=== PATIENT | male | born 1990 | race Caucasian/White ===

== ENCOUNTER 2025-05-24 12:16 | Emergency (ER) | payer BC, SELFPAY ==
[2025-05-24 12:26] VITALS: BP 111/76
[2025-05-24 12:49] VITALS: BP 124/79
--- NOTE | 2025-05-24 12:56 | ED.GENMED ---
History of Present Illness
General
Chief Complaint: Musculo-Skeletal Complaint
Source: patient
Time Seen by Provider: 05/24/25 12:33
History of Present Illness
History of Present Illness:
34-year-old male with past medical history of insulin-dependent diabetes presenting to the ER for evaluation of right knee pain and deformity while he was playing softball states he was running, tried to stop but his knee kept going forward now with
significant pain and inability to ambulate. Notes a history of previous subluxations to the patella but states this does feel. No other injuries were sustained.
Past History
Past History
ED Past Medical History: IDDM and Other (Previous Lyme's disease)
ED Past Surgical History: None
Social History
Tobacco: Non-smoker
Alcohol: Occasional
Drug: Marijuana (Daily)
Personal: Single
Living: with family
Employment: Employed
Family History
Family History: Other (Noncontributory); Negative Early CAD
Review of Systems
Review of Systems
All Other Systems: ROS reviewed and negative except as documented in HPI and ROS
Phy Exam
Physical Exam
Physical Exam:
GENERAL: Alert , in no apparent distress
EYE: conjunctiva clear
Head: Normocephalic atraumatic
NECK: Supple,
ENT: mmm.
LUNGS: no acute respiratory distress
NEUROLOGICAL: Alert and oriented
SKIN: Warm and dry, skin intact.
MUSCULOSKELETAL: Right knee: Significant soft tissue swelling with diminished range of motion secondary to pain. Tenderness directly over the proximal tibia. Easily palpable pedal and tibial pulse. Cap refill less than 2 seconds. Sensation
grossly intact to light touch. Remainder of extremity is within normal limits.
PSYCH: Normal and appropriate interaction.
Scores
Heart Failure Risk
Heart Failure Risk Score: Not Applicable
Heart Score for Chest Pain Patients
STEMI patient?: Not applicable
Withdrawal Assessment of Alcohol
Withdrawal Assessment Completed?: Not applicable
Course
Orders/Labs/Results
Orders:
Orders
05/24/25 12:29
CR Knee- Right 4 Or More View* Urgent
Comment:
Reason For Exam: injury
05/24/25 12:52
Crutches-Treatment ONCE
Knee Immobilizer Right-Treatme ONCE
Ibuprofen [Motrin] 600 mg PO NOW STA
Vital Signs
Initial and Last Documented VS:
Initial Vital Signs
Temp Pulse Resp BP Pulse Ox
98.2 F 88 20 111/76 99
05/24/25 12:26 05/24/25 12:26 05/24/25 12:26 05/24/25 12:26 05/24/25 12:26
Last Documented Vital Signs
Temp Pulse Resp BP Pulse Ox
98.2 F 88 20 124/79 100
05/24/25 12:26 05/24/25 12:26 05/24/25 12:26 05/24/25 12:49 05/24/25 12:57
MDM/Problems Addressed
Differential Diagnosis Includes:
- Fracture
- Dislocation
- Ligamentous injury
- Meniscal injury
- Tendon rupture
MDM/Problems Addressed:
34-year-old male presenting to the ER for evaluation of right knee pain following an injury while playing softball. Patient brought to x-ray on arrival which does show a tibial plateau fracture. Will place in a knee immobilizer, patient to be
nonweightbearing and will need outpatient follow-up as will potentially need surgery for repair. Motrin for pain control
*Radiology
Radiology exam reviewed: preliminary read by ED provider (Tibial plateau fracture)
*Pulse Oximetry
SaO2: 100
Oxygen Mode of Delivery: Room air
Patient hypoxic: no
*Critical Care Note
Total Time (30-74mins, 75-104mins- exclusive of procedures): Not Applicable
Patient Management
Discussion with other providers: Cannoneer
Escalation/DeEscalation of care consider admission/obs:
I notified the on-call orthopedist, Dr. Alvarenga, who agrees with treatment plan and patient call the office tomorrow for a follow-up visit
ED Attending Note
-
Portions of this chart may have been created with voice recognition software.� Occasional wrong word or��sound alike� substitutions may have occurred due to the inherent limitations of voice recognition software.
Discharge Plan
Departure
Patient Disposition: Home (Routine Discharge)
Date of Disposition: 05/24/25
Time of Disposition: 12:56
Patient with high blood pressure during this ER visit?: No
Discharge Problem:
Closed fracture of right tibial plateau
Instructions: Lower leg fracture
Prescriptions:
No Action
Insulin Pump [Patient's Own Insulin Pump:] 1 UNITS Pump.Resvr
0 units SC .BASAL+MEAL BOLUSES
Patient Comments:
08/10/15: Insulin type = Humalog (Insulin Lispro)
Basal rate = unknown by patient - patient reports 'it was set at the office'
Bolus dose = per patient based on meal
Referrals:
Jitendra Cortes MD [Active, Orthopedics]
Referral Note: Please call for appointment tomorrow morning
Interventions
Interventions:
*Risk Screen - Suicide Last Done: 05/24/25 12:50
*General Assessment Last Done: 05/24/25 12:26
*Neglect/Abuse Screening Last Done: 05/24/25 12:50
*ED- Fall Risk Assessment Last Done: 05/24/25 12:50
*ED COVID-19 Vaccine History Last Done: 05/24/25 12:50
*Nursing Disposition Last Done: 05/24/25 13:08
ED-Musculoskeletal Assessment Last Done: 05/24/25 12:50
Discharge Date and Time
Discharge Date/Time: 05/24/25 13:08
Print Language: NORTHER[place] IRISH
[2025-05-24] MEDS: MOTRIN 600 MG PO (12:59)
== END 2025-05-24 13:08 | disposition home or self-care (01) ==
LOC: EMR 12:16
PROVIDERS: EMERGENCY PHYSICIAN Emergency Medicine; FAMILY PHYSICIAN Internal Medicine
DX: S82.141A Displaced bicondylar fracture of right tibia, initial encounter for closed fracture (principal); X50.1XXA Overexertion from prolonged static or awkward postures, initial encounter; Y93.64 Activity, baseball; E11.9 Type 2 diabetes mellitus without complications; Z79.4 Long term (current) use of insulin
CPT/HCPCS: 29505; 99284; 73564; 80048; 80053; 82550; 83605; 85025; 85610; 85730; 86850; 86900; 86901

== ENCOUNTER 2025-05-24 21:13 | Emergency (ER) | payer BC, SELFPAY ==
[2025-05-24 21:16] VITALS: BP 139/98; BMI 31.7
[2025-05-24 22:00] VITALS: BP 137/83
[2025-05-24 23:00] VITALS: BP 152/95
[2025-05-24] MEDS: DILAUDID 1 MG IV (23:39)
--- NOTE | 2025-05-24 23:41 | ED.GENMED ---
History of Present Illness
General
Chief Complaint: Musculo-Skeletal Complaint
Source: patient and records
Exam Limitations: none
Time Seen by Provider: 05/24/25 23:32
Nursing documentation reviewed up to this point in time: agreed with
History of Present Illness
History of Present Illness:
34-year-old male with a past medical history of diabetes presents to the emergency department for evaluation of severe leg pain. Patient was seen earlier today after an injury while running during a softball game�unfortunately he suffered a tibial
plateau fracture. He was discharged in a knee immobilizer with a referral to orthopedics. He says that initially his pain was relatively minor however at about 7 PM it began to worsen and is now 'unbearable.' He describes severe pain in the right
knee and lower leg associated with paresthesias in the leg. He has not taken off the immobilizer to check for any swelling. He called EMS because he could not manage the pain and was given fentanyl without any improvement in his pain.
Past History
Past History
ED Past Medical History: IDDM and Other (Previous Lyme's disease)
ED Past Surgical History: None
Social History
Tobacco: Non-smoker
Alcohol: Occasional
Drug: Marijuana (Daily)
Personal: Single
Living: with family
Employment: Employed
Family History
Family History: Other (Noncontributory); Negative Early CAD
Review of Systems
Review of Systems
All Other Systems: ROS reviewed and negative except as documented in HPI and ROS
Musculoskeletal: Reports joint pain, joint swelling and muscle pain
Phy Exam
Physical Exam
Physical Exam:
General: Awake, alert, appears very uncomfortable
Head: Normocephalic, atraumatic
Eyes: Conjunctiva normal
Throat: Airway intact, handling secretions
Neck: Trachea midline, supple without meningismus
Lungs: Breathing comfortably
Heart: Regular rate
Skin: no rash/skin changes
Extremities: Patient has large right knee effusion; he has significant swelling of the right calf and his right calf is very tense and hard and exquisitely tender to the touch; he has severe pain with any attempt at motion in the knee and any
attempt at dorsiflexion/plantarflexion of the foot causes severe pain in the calf; fortunately he does have a palpable dorsalis pedis pulse on the right, no change in color in the right lower extremity
Scores
Heart Failure Risk
Heart Failure Risk Score: Not Applicable
Heart Score for Chest Pain Patients
STEMI patient?: Not applicable
Withdrawal Assessment of Alcohol
Withdrawal Assessment Completed?: Not applicable
Course
Orders/Labs/Results
Orders:
Orders
05/24/25 23:37
HYDROmorphone [Dilaudid] 1 mg IV NOW STA
05/24/25 23:41
HYDROmorphone [Dilaudid] 1 mg IV PRN PRN
05/24/25 23:43
ORTHOPEDIC CONSULT Urgent
Consulting Provider: Chao Alvarenga
Was physician already notified: Yes
05/24/25 23:45
0.9% Sodium Chloride 1000 ml [Nss] 1,000 ml IV 100 mls/hr
05/24/25 23:46
Type+Screen Urgent
Basic Metabolic Panel Urgent
CPK [Creatine Phosphokinase] Urgent
Complete Blood Count/With Diff Urgent
Lactate Level [Lactic Acid] Urgent
PTT Urgent
Prothrombin Time Urgent
05/24/25 23:54
ABO2 Routine
BBK Wristband Number:
Associate notified that ABO2 has been ordered: [id number]
Date: 05/24/25
Time: 23:55
Mortgage Loan Interviewer ID: [id number]
Abnormal Lab Results
05/24/25
23:46
WBC 11.1 H 10^3/uL
(4.8-10.8)
RBC 4.56 L 10^6/uL
(4.70-6.10)
Hct 38.6 L %
(39.0-52.0)
Absolute Neuts (auto) 8.4 H 10^3/uL
(1.4-6.5)
Absolute Monos (auto) 1.2 H 10^3/uL
(0.1-0.6)
Lymphocytes % 12.8 L %
(20.5-51.1)
Monocytes % 11.0 H %
(1.7-9.3)
PT 14.7 H Sec
(11.4-14.6)
Chloride 110 H mmol/L
(98-107)
Carbon Dioxide 17 L mmol/L
(22-30)
Glucose 105 H mg/dl
(70-99)
Creatine Kinase 881 H U/L
(55-170)
05/24/25 23:46
05/24/25 23:46
Vital Signs
Initial and Last Documented VS:
Initial Vital Signs
Temp Pulse Resp BP Pulse Ox
37.5 C 82 19 139/98 98
05/24/25 21:16 05/24/25 21:16 05/24/25 21:16 05/24/25 21:16 05/24/25 21:16
Last Documented Vital Signs
Temp Pulse Resp BP Pulse Ox
37.5 C 100 23 165/87 93
05/24/25 21:16 05/25/25 01:15 05/25/25 01:15 05/25/25 01:02 05/25/25 01:15
MDM/Problems Addressed
Differential Diagnosis Includes:
Uncontrolled pain from fracture, worsening joint effusion, compartment syndrome
MDM/Problems Addressed:
34-year-old male returns to the emergency room�diagnosed with tibial plateau fracture earlier today and pain was relatively mild but has had worsening pain and now he says pain in his lower leg is unbearable. He did receive fentanyl from EMS
without any improvement. Vitals and exam as above. Clinical concern is for compartment syndrome. Will send off labs including CPK and lactate. Continue pain control. Discussed case with orthopedist for bedside consultation.
Discussed at length with orthopedist who recommended transfer to trauma center. Discussed with patient he is requesting that we try to send him to [facility]�declined transfer to [place] or [place]. I spoke with the orthopedist and the
trauma physician at [facility]. Orthopedist accepted patient for emergent transfer with concern for compartment syndrome�accepting physician Dr. Tijerina. Will arrange for flight to trauma center.
I did review labs prior to transfer�marginal leukocytosis, CMP shows metabolic acidosis. Lactate normal but CPK 881. Flight team en route.
Unfortunately there have been significant delays to transport despite tireless efforts here. Initial flight team grounded for technical difficulties. Our backup flight team then arrived and brought patient to critical access hospital only to have technical issues
and had to return patient to the emergency room. Multiple calls to different BLS and ALS crews including offering to have a provider drive down with crew. We even called 911 to try and get a EMS crew unsuccessfully. [facility].
*Radiology
Radiology exam reviewed: radiology read reviewed (Reviewed imaging from earlier today)
*Pulse Oximetry
SaO2: 97
Oxygen Mode of Delivery: Room air
Patient hypoxic: no (97%)
*Critical Care Note
Total Time (30-74mins, 75-104mins- exclusive of procedures): 51
comment:
Critical care statement: A total of 51 minutes of critical care time was provided for this patient. This includes management of unstable vital signs, evaluation of the patient at bedside, frequent reassessment, discussion with
consultants/hospitalist, coordinating transfer and review of pertinent medical records. This time was separate from time utilized to perform any aforementioned documented procedures
Data Reviewed
Review of Other/Old Records Reveals: Radiology Studies
Source: patient, records and spouse
Patient Management
Discussion with other providers: Crew Scheduler (Discussed with orthopedist here at [place]; I also discussed with the trauma physician at [facility], orthopedist at [facility])
Escalation/DeEscalation of care consider admission/obs:
Admission indicated�emergent transfer to trauma center
ED Attending Note
-
Portions of this chart may have been created with voice recognition software.� Occasional wrong word or��sound alike� substitutions may have occurred due to the inherent limitations of voice recognition software.
Discharge Plan
Departure
Patient Disposition: Acute Care Hospital
Date of Disposition: 05/25/25
Time of Disposition: 00:33
Discharge Problem:
Closed fracture of tibial plateau, Compartment syndrome
Prescriptions:
No Action
Insulin Pump [Patient's Own Insulin Pump:] 1 UNITS Pump.Resvr
0 units SC .BASAL+MEAL BOLUSES
Patient Comments:
08/10/15: Insulin type = Humalog (Insulin Lispro)
Basal rate = unknown by patient - patient reports 'it was set at the office'
Bolus dose = per patient based on meal
Referrals:
Miller Brian MD [Family Provider, Internal Medicine]
Hospital Transfer
Other hospital: [facility]
I certify that the patient requires transfer: Yes
Discussed case with accepting physician: Dr. Tijerina
Reason for transfer: higher level of care and specialties available
Interventions
Interventions:
*Risk Screen - Suicide Last Done: 05/24/25 21:18
*General Assessment Last Done: 05/24/25 21:18
*Neglect/Abuse Screening Last Done: 05/24/25 21:18
*ED- Fall Risk Assessment Last Done: 05/24/25 21:18
*ED COVID-19 Vaccine History Last Done: 05/24/25 21:18
*Nursing Disposition Last Done: 05/25/25 01:34
ED-Musculoskeletal Assessment Last Done: 05/24/25 21:30
Discharge Date and Time
Discharge Date/Time: 05/25/25 01:35
Print Language: CHADIAN
[2025-05-24] MEDS: NSS 1000 IV (23:51)
[2025-05-24 23:58] LABS: % Basophils 0.5 % (0-2); % Eosinophils 0.2 % (0-6); % Immature Granulocytes 0.4 % (0-0.5); % Lymphocytes 12.8 % (20.5-51.1); % Neutrophils 75.1 % (42.2-75.2); Absolute Basophils 0.1 10^3/uL (0-0.2); Absolute Lymphocytes 1.4 10^3/uL (1.2-3.4); Absolute Monocytes 1.2 10^3/uL (0.1-0.6); Absolute Neutrophils 8.4 10^3/uL (1.4-6.5); Hematocrit 38.6 % (39.0-52.0); Hemoglobin 13.9 g/dL (13.0-18.0); Mean Corpuscular Hgb 30.5 pg (27.0-31.0); Mean Corpuscular Volume 84.6 fL (80.0-94.0); Mean Platelet Volume 9.8 fL (7.4-10.4); Nucleated Red Blood Cells % 0 % (-); Platelet Count 256 10^3/uL (130-400); Red Blood Cell Count 4.56 10^6/uL (4.70-6.10); Red Cell Dist. Width 12.8 % (11.5-14.5); White Blood Cell Count 11.1 10^3/uL (4.8-10.8)
[2025-05-25] VITALS: BP 147/87
[2025-05-25 00:05] LABS: Lactic Acid 0.9 mmol/L (0.7-2.0)
[2025-05-25 00:08] LABS: Blood Urea Nitrogen 11 mg/dl (9-20); Calcium 9.2 mg/dl (8.4-10.2); Carbon Dioxide 17 mmol/L (22-30); Chloride 110 mmol/L (98-107); Creatine Phosphokinase 881 U/L (55-170); Estimated Creatinine Clearance > 125 ml/min; Glucose 105 mg/dl (70-99); Sodium 138 mmol/L (135-145); eGFR > 60.00
[2025-05-25] MEDS: DILAUDID 1 MG IV (00:29)
[2025-05-25 00:32] LABS: INR 1.12; PT 14.7 Sec (11.4-14.6)
[2025-05-25 01:02] VITALS: BP 165/87
== END 2025-05-25 01:35 | disposition short-term general hospital (02) ==
LOC: EMR 21:13
PROVIDERS: CONSULT PHYSICIAN Orthopaedic Surgery; EMERGENCY PHYSICIAN Emergency Medicine; FAMILY PHYSICIAN Internal Medicine
DX: S82.141A Displaced bicondylar fracture of right tibia, initial encounter for closed fracture (principal); T79.A21A Traumatic compartment syndrome of right lower extremity, initial encounter; X58.XXXA Exposure to other specified factors, initial encounter; Y93.64 Activity, baseball; E11.9 Type 2 diabetes mellitus without complications; Z79.4 Long term (current) use of insulin
CPT/HCPCS: 99291; 96374; 96376; 80048; 80053; 82550; 83605; 85025; 85610; 85730; 86850; 86900; 86901